=== PATIENT | female | born 1970 | race Caucasian/White ===

== ENCOUNTER 2025-02-16 20:29 | Emergency (ER) | payer MEDICAID, SELFPAY ==
[2025-02-16 20:31] VITALS: BMI 34.7
[2025-02-16 20:48] VITALS: BP 146/83; PULSE 100; RESP 18; TEMP 36.8; O2SAT 95
--- NOTE | 2025-02-16 20:54 | XR_ITS ---
Examination: CT brain head without contrast. 2-D sagittal coronal reconstructions Date and time of exam: February 16, 2025, 2112 hours INDICATIONS: Patient slipped and fell 1 day ago with injury to the head, head pain CTDI: vol (mGy): 47.8 DLP: (mGycm): 923 Technique: Multiple CT axial sections of the brain have been obtained, 5 mm slice thickness. Contrast has not been administered. 2-D sagittal, coronal reconstructions have been obtained Low dose protocols were performed. One or more of the following dose reduction techniques were used; automated exposure control, adjustment of the mA and/or KV according to patient size, use of iterative reconstruction technique. Findings: No significant ventricular enlargement. Intra-axial or extra-axial hemorrhage density is not seen. No mass effect or midline shift Basal cisterns are not remarkable. Fourth ventricle is midline. Cranial vault intact. Significant frontal right ethmoid right maxillary antral sinusitis Impression: Negative for acute hemorrhage, mass effect or midline shift
--- NOTE | 2025-02-16 20:54 | XR_ITS ---
Examination: CT cervical spine without contrast 2-D sagittal reconstructions 2-D coronal reconstructions 3-D reconstructions. Exam date and time: February 16, 2025, 2114 hours INDICATION: Patient slipped and fell 1 day ago with injury to the neck, neck pain CTDI:vol (mGy) 14.26 DLP: (mGycm) 269 Technique: Multiple 2 mm axial sections of the cervical spine have been obtained. The coronal and sagittal reconstructions have been obtained. 3-D reconstructions have been obtained. Low dose protocols were performed. One or more of the following dose reduction techniques were used; automated exposure control, adjustment of the mA and/or KV according to patient size, use of iterative reconstruction technique. Findings: Axial sections demonstrate intact base of the skull. C1 exhibit satisfactory relationship to the odontoid. No acute cervical vertebral body fracture seen. Alignment posterior spinous processes satisfactory. Impression: No acute cervical fracture.
--- NOTE | 2025-02-16 20:56 | PD.EDHEAD ---
ED Head Injury RME/HPI General Chief complaint: Head Injury Stated complaint: FALL HEAD AND NECK INJ Time Seen by Provider: 02/16/25 20:34 Arrival date/time: 02/16/25 20:29 54-year-old female patient with no past medical history, currently not taking any blood thinner, came in for evaluation regarding head and neck injury. Patient sustained a ground-level fall yesterday, and now complaining of headache, dizziness, neck pain, described as dull ache, severity moderate. Patient is denying any LOC no nausea no vomiting no other injury noted. No medication was taken prior to ER visit patient is ambulatory. Related Data Allergies Allergy/AdvReac Type Severity Reaction Status Date / Time Penicillins Allergy Verified 02/16/25 20:36 Review of Systems Review of Systems Narrative Review of Systems: Review of system reviewed and within normal limits except mentioned in HPI ED Exam Narrative Physical exam: VITAL SIGNS: Reviewed. GENERAL APPEARANCE: Alert and interactive, follows commands, no acute distress, HEAD AND FACE: Non-traumatic. ENT: PERRL, pink conjunctivitis, eyelid no trauma, Mucous membrane moist. NECK: Supple, posterior neck tenderness, no nuchal rigidity. CHEST: No tenderness, no crepitus, no paradoxical movement, no retractions. LUNGS: Clear, well ventilated, symmetric, no rales, no wheezing, no ronchi, no stridor, good breath sounds bilaterally. HEART: Regular rate, regular rhythm, no murmur, no gallops. ABDOMEN: Soft, positive bowel sounds, nondistended, no guarding, nontender, no rebound, no masses, RECTAL: Deferred. GENITAL: Deferred. NEUROLOGICAL: Gross motor function intact sensory function intact, Appropriate for age. MUSCULOSKELETAL: low back nontender, full range of motion. EXTREMITIES: Nontender, full range of motion. SKIN: Color pink, dry, no rash, no lacerations, no abrasions, no contusions. LYMPHATICS: Deferred. Course Quality Measures none Orders Category Date Time Status CT cervical spine wo con Stat Exams 02/16/25 20:[address] head/brain wo con Stat Exams 02/16/25 20:54 Completed Acetaminophen Tab [Tylenol ES Tab] Med 02/16/25 20:54 Discontinued 1,000 mg PO X1 ONE Meclizine HCl [Antivert] Med 02/16/25 20:54 Discontinued 50 mg PO X1 ONE Vital Signs Vital signs: Vital Signs Temperature 98.3 F 02/16/25 20:48 Pulse Rate 100 02/16/25 20:48 Respiratory Rate 18 02/16/25 20:48 Blood Pressure 146/83 H 02/16/25 20:48 Pulse Oximetry (%) 95 02/16/25 20:48 Oxygen Delivery Method Room Air 02/16/25 20:48 Head Injury MDM Narrative MDM Narrative:: 54-year-old female patient with no past medical history, currently not taking any blood thinner, came in for evaluation regarding head and neck injury. Patient sustained a ground-level fall yesterday, and now complaining of headache, dizziness, neck pain, described as dull ache, severity moderate. Patient is denying any LOC no nausea no vomiting no other injury noted. No medication was taken prior to ER visit patient is ambulatory. Patient data External records reviewed:: None Clinical information provided by:: patient and family Social determinants that could affect healthcare access:: none Patient has the following chronic illnesses:: None How is presenting disease/condition affected by chronic disease/condition?: no chronic disease Evaluation data The following diagnostics were reviewed and interpreted by me:: radiology exam(s) Lab and/or radiology exams considered but not ordered:: None Interpretation Summary: See above Medications / Prescriptions Medications or Prescriptions considered but not ordered:: None Medication administrations:: Medication Administration History Discontinued Medications Acetaminophen (Acetaminophen 500 Mg Tablet) 1,000 mg PO X1 ONE Stop: 02/16/25 20:55 Last Admin: 02/16/25 21:40 Dose: 1,000 mg Documented By: AMARI Meclizine HCl (Meclizine Hcl 25 Mg Tablet) 50 mg PO X1 ONE Stop: 02/16/25 20:55 Last Admin: 02/16/25 21:40 Dose: 50 mg Documented By: AMARI Tylenol and meclizine Consultations Consultation(s) initiated? (list below): No Diagnosis Differential diagnosis head injury: closed head injury and other (Neck pain, headache) Most likely diagnosis given after review of the tests above:: Headache, neck pain, status post fall Admission Indicated Admission indicated?: not indicated Admission Request Was there a request for admission?: No Disposition Plan Disposition Plan: Discharge Discharge Attestation Discharge Attestation: The patient and all family members were given an opportunity to ask questions and understood the discharge instructions. Discharge instructions specifically effects, indications for sooner follow up or return to the emergency department, and the expected course of current diagnosis. Patient condition: Stable Discharge Plan Plan Patient Disposition: HOME (Self Care) Discharge Disposition comment: Stable Prescriptions/Referrals Referrals: No Primary/Family,Physician [Primary Care Provider] - In 1 week Problem List Clinical Impression: Headache, Neck pain, Fall Patient/Caregiver Discharge Instructions Discharge Activity: activity as tolerated Education Materials: ED Neck Pain Additional Instructions: Thank you for the opportunity for serving you today. You are stable for discharged . You are advised to: Follow-up with your PCP in 1 to 2 days Return to ED for worsening of symptoms Increase oral fluids Take [id number] Tylenol or Motrin as needed for pain Print Language: [employer] Stand Alone Forms: Ligia Award Info., Patient Portal Info Letter CRISTO/KELLY Supervising Physician CRISTO/KELLY Supervising Physician: MD Pauline
[2025-02-16] MEDS: ACETAMINOPHEN 500 MG TABLET 1000 MG PO (21:40)
[2025-02-16] MEDS: MECLIZINE HCL 25 MG TABLET 50 MG PO (21:40)
== END 2025-02-16 22:20 | disposition home or self-care (01) ==
PROVIDERS: Emergency Provider Emergency Medicine
DX: S09.90XA Unspecified injury of head, initial encounter (principal); S19.9XXA Unspecified injury of neck, initial encounter; W18.30XA Fall on same level, unspecified, initial encounter
CPT/HCPCS: 70450; 72125; 99282; A9270